=== PATIENT | female | born 1980 | race African-American/Black ===

== ENCOUNTER 2017-04-14 12:08 | Emergency (ER) | payer OTHER ==
[~2017-04-14] VITALS: Ht 160 cm; Wt 124.7 kg
[~2017-04-14 12:08] MED LIST: ACETAMINOPHEN-1 EAC1 PO; AUGMENTIN 875875 MG PO; BACTRIM DS TAB1 EACH PO; BIRTH CONTROL; CLEOCIN HCL150 MG PO; DIFLUCAN150 M1 PO; DIFLUCAN150 MG PO; FLEXERIL PO; GLUCOPHAGE500 MG PO; IBUPROFEN 200200 M1 PO; IBUPROFEN 800800 M1 PO; MAXZIDE-25 MG1 EACH PO; MOBIC7.5 MG PO; NORCO 5-325 TA1 EACH PO; PEPCID20 MG PO; PREDNISONE 20 M20 MG PO; ULTRAM 50MG TAB50 MG PO; ZOFRAN ODT4 MG PO
[2017-04-14] MEDS ORDERED: NOVOLOG100 UNIT/1 SUBQ (12:20)
[2017-04-14 13:57] LABS: URINE BILIRUBIN NEGATIVE (Negative); URINE BLOOD TRACE (Negative); URINE CLARITY CLEAR; URINE COLOR YELLOW; URINE GLUCOSE-RANDOM 3+ (Negative); URINE KETONES NEGATIVE (Negative); URINE LEUKOCYTES 1+ (Negative); URINE NITRITE NEGATIVE (Negative); URINE PROTEIN NEGATIVE (Negative); URINE UROBILINOGEN 0.2 E.U./dl (0.2-1.0)
[2017-04-14 14:06] LABS: SQUAMOUS >10 Many /LPF (0-3)
[2017-04-14 14:07] LABS: BACTERIA >30 Many /HPF (None Seen)
[2017-04-14 14:08] LABS: CASTS None Seen /LPF (None Seen); CRYSTALS None Seen /LPF (None Seen); URINE RBC 3-10 Few /HPF (0-2)
[2017-04-14] MEDS ORDERED: CIPRO500 MG PO (14:14)
[2017-04-14] MEDS ORDERED: DIFLUCAN150 MG PO (14:14)
[2017-04-14 14:22] VITALS: BP 177/126
== END 2017-04-14 14:23 | disposition home or self-care (01) ==
LOC: M.ERS 12:08
PROVIDERS: Physician Assistant
DX: N30.00 Acute cystitis without hematuria (principal); E11.9 Type 2 diabetes mellitus without complications; I10 Essential (primary) hypertension; Z90.49 Acquired absence of other specified parts of digestive tract; Z98.890 Other specified postprocedural states; Z79.4 Long term (current) use of insulin

== ENCOUNTER 2017-05-08 08:23 | Emergency (ER) | payer OTHER ==
[~2017-05-08] VITALS: Ht 160 cm; Wt 124.7 kg
[~2017-05-08 08:23] MED LIST changes: +CIPRO500 MG PO; +NOVOLOG100 UNIT/1 SUBQ
[2017-05-08 08:36] LABS: URINE BILIRUBIN NEGATIVE (Negative); URINE BLOOD NEGATIVE (Negative); URINE CLARITY SL CLOUDY; URINE COLOR YELLOW; URINE GLUCOSE-RANDOM 2+ (Negative); URINE KETONES NEGATIVE (Negative); URINE LEUKOCYTES NEGATIVE (Negative); URINE NITRITE NEGATIVE (Negative); URINE PROTEIN TRACE (Negative); URINE SPECIFIC GRAVITY >= 1.030 (1.005-1.030); URINE UROBILINOGEN 0.2 E.U./dl (0.2-1.0)
[2017-05-08 08:46] LABS: BACTERIA >30 Many /HPF (None Seen); CRYSTALS None Seen /LPF (None Seen); MUCUS 4-6 Moderate strn/LPF (None Seen); SQUAMOUS >10 Many /LPF (0-3); URINE RBC None Seen /HPF (0-2); URINE WBC 6-15 Few /HPF (0-5)
[2017-05-08 08:54] LABS: CASTS None Seen /LPF (None Seen)
[2017-05-08] MEDS ORDERED: MACROBID 100 M100 M1 PO (09:24)
[2017-05-08 09:37] VITALS: BP 158/103
== END 2017-05-08 09:38 | disposition home or self-care (01) ==
LOC: M.ERS 08:23
PROVIDERS: Emergency Medicine Emergency Medical Services
DX: N39.0 Urinary tract infection, site not specified (principal); N76.0 Acute vaginitis; E11.9 Type 2 diabetes mellitus without complications; E66.01 Morbid (severe) obesity due to excess calories; I10 Essential (primary) hypertension; E28.2 Polycystic ovarian syndrome; Z90.49 Acquired absence of other specified parts of digestive tract; Z79.4 Long term (current) use of insulin; Z68.42 Body mass index [BMI] 45.0-49.9, adult

== ENCOUNTER 2018-03-27 17:59 | Emergency (ER) | payer OTHER ==
[~2018-03-27] VITALS: Ht 160 cm; Wt 127.0 kg
[~2018-03-27 17:59] MED LIST changes: +MACROBID 100 M100 M1 PO
[2018-03-27] MEDS ORDERED: LANTUS100 UNIT/M SUBQ (18:14)
[2018-03-27] MEDS ORDERED: GLUCOPHAGE XR500 MG PO (18:14)
[2018-03-27] MEDS ORDERED: LISINOPRIL-HCT1 EAC1 PO (18:15)
[2018-03-27 18:26] LABS: URINE BILIRUBIN NEGATIVE (Negative); URINE BLOOD NEGATIVE (Negative); URINE CLARITY CLEAR; URINE COLOR YELLOW; URINE GLUCOSE-RANDOM 3+ (Negative); URINE KETONES NEGATIVE (Negative); URINE LEUKOCYTES-REFLEX TRACE (Negative); URINE NITRITE-REFLEX NEGATIVE (Negative); URINE PROTEIN NEGATIVE (Negative); URINE SPECIFIC GRAVITY 1.015 (1.005-1.030); URINE UROBILINOGEN 0.2 E.U./dl (0.2-1.0)
[2018-03-27 18:35] LABS: MUCUS None Seen strn/LPF (None Seen); SQUAMOUS >10 Many /LPF (0-3)
[2018-03-27 18:36] LABS: BACTERIA-REFLEX 1-9 Few /HPF (None Seen); CASTS None Seen /LPF (None Seen); URINE WBC-REFLEX 6-15 Few /HPF (0-5)
[2018-03-27 18:37] LABS: CRYSTALS None Seen /LPF (None Seen); URINE RBC None Seen /HPF (0-2)
[2018-03-27] MEDS ORDERED: DIFLUCAN150 M1 PO (19:17)
[2018-03-27] MEDS ORDERED: DOXYCYCLINE 10100 MG PO (19:17)
[2018-03-27 19:54] VITALS: BP 145/79
== END 2018-03-27 19:56 | disposition home or self-care (01) ==
LOC: M.ERS 17:59
PROVIDERS: Nurse Practitioner Family
DX: Z20.2 Contact with and (suspected) exposure to infections with a predominantly sexual mode of transmission (principal); N39.0 Urinary tract infection, site not specified; E11.9 Type 2 diabetes mellitus without complications; I10 Essential (primary) hypertension; E66.01 Morbid (severe) obesity due to excess calories; Z68.42 Body mass index [BMI] 45.0-49.9, adult; Z90.49 Acquired absence of other specified parts of digestive tract

== ENCOUNTER 2018-10-21 20:56 | Emergency (ER) | payer OTHER ==
[~2018-10-21] VITALS: Ht 160 cm; Wt 1.8 kg
[~2018-10-21 20:56] MED LIST changes: +DOXYCYCLINE 10100 MG PO; +GLUCOPHAGE XR500 MG PO; +LANTUS100 UNIT/M SUBQ; +LISINOPRIL-HCT1 EAC1 PO
[2018-10-21] MEDS ORDERED: NEURONTIN 300M300 M2 PO (21:11)
[2018-10-21 21:32] LABS: ABSOLUTE BASOPHILS 0.1 thou/uL (0.0-0.2); ABSOLUTE EOSINOPHILS 0.4 thou/uL (0.0-0.7); ABSOLUTE LYMPHOCYTES 4.2 thou/uL (0.8-5.3); ABSOLUTE MONOCYTES 0.5 thou/uL (0.0-1.2); ABSOLUTE NEUTROPHILS 3.9 thou/uL (1.6-8.1); BASOPHILS 0.6 %; EOSINOPHILS 4.4 %; HEMOGLOBIN 12.7 gm/dL (12.0-15.0); MCH 29.1 pg (26.0-34.0); MCHC 33.4 g/dL (28.0-37.0); MCV 87.2 fL (80.0-100.0); MPV 9.6 fl. (7.2-11.1); NUCLEATED RBCS 0 /100WBC; PLATELET COUNT* 178 thou/uL (150-400); RBC 4.35 mil/uL (4.20-5.00); RDW-CV 13.9 % (10.5-14.5); WBC 9.1 thou/uL (4.0-11.0)
[2018-10-21 21:46] LABS: PROTIME 10.6 Seconds (9.20-11.50)
[2018-10-21 21:49] LABS: CREATININE 0.7 mg/dL (0.6-1.3); POTASSIUM 3.6 mmol/L (3.5-5.1)
[2018-10-21 21:54] LABS: ALBUMIN 3.5 g/dL (3.4-5.0); LIPASE 146 U/L (73-393); NT-PRO BRAIN NAT PEPTIDE 21 pg/mL (<300); TOTAL BILIRUBIN 0.4 mg/dL (<0.1-1.0); TOTAL PROTEIN 7.1 g/dL (6.4-8.2); TROPONIN-I LEVEL <0.06 ng/mL (<0.06)
[2018-10-22] MEDS ORDERED: PROMETH-CODEIN 65 ML PO (01:32)
[2018-10-22] MEDS ORDERED: PROAIR HFA8.5 GM INH (01:32)
[2018-10-22] MEDS ORDERED: PREDNISONE50 MG PO (01:32)
[2018-10-22 01:45] VITALS: BP 109/69
== END 2018-10-22 01:49 | disposition home or self-care (01) ==
LOC: M.ERS 20:56
PROVIDERS: Emergency Medicine
DX: R05 Cough (principal); R07.89 Other chest pain; E28.2 Polycystic ovarian syndrome; E11.9 Type 2 diabetes mellitus without complications; I10 Essential (primary) hypertension; E66.01 Morbid (severe) obesity due to excess calories; Z88.1 Allergy status to other antibiotic agents; Z88.5 Allergy status to narcotic agent; Z90.49 Acquired absence of other specified parts of digestive tract; Z68.41 Body mass index [BMI] 40.0-44.9, adult; Z79.4 Long term (current) use of insulin

== ENCOUNTER 2019-02-08 21:37 | Emergency (ER) | payer OTHER ==
[~2019-02-08] VITALS: Ht 160 cm; Wt 122.5 kg
[~2019-02-08 21:37] MED LIST changes: +NEURONTIN 300M300 M2 PO; +PREDNISONE50 MG PO; +PROAIR HFA8.5 GM INH; +PROMETH-CODEIN 65 ML PO
[2019-02-08 22:15] LABS: ABSOLUTE EOSINOPHILS 0.5 thou/uL (0.0-0.7); ABSOLUTE LYMPHOCYTES 4.3 thou/uL (0.8-5.3); ABSOLUTE MONOCYTES 0.6 thou/uL (0.0-1.2); ABSOLUTE NEUTROPHILS 5.1 thou/uL (1.6-8.1); BASOPHILS 0.2 %; EOSINOPHILS 4.4 %; HEMATOCRIT 40.4 % (37.0-47.0); HEMOGLOBIN 13.7 gm/dL (12.0-15.0); LYMPHOCYTES 40.7 %; MCH 29.8 pg (26.0-34.0); MCV 87.8 fL (80.0-100.0); MONOCYTES 5.8 %; MPV 10.5 fl. (7.2-11.1); NUCLEATED RBCS 0 /100WBC; PLATELET COUNT* 180 thou/uL (150-400); POLYS 48.9 %; RDW-CV 13.6 % (10.5-14.5); WBC 10.5 thou/uL (4.0-11.0)
[2019-02-08 22:32] LABS: URINE BILIRUBIN NEGATIVE (Negative); URINE BLOOD 1+ (Negative); URINE CLARITY CLEAR; URINE COLOR YELLOW; URINE GLUCOSE-RANDOM TRACE (Negative); URINE KETONES NEGATIVE (Negative); URINE LEUKOCYTES-REFLEX TRACE (Negative); URINE NITRITE-REFLEX NEGATIVE (Negative); URINE PROTEIN 1+ (Negative); URINE SPECIFIC GRAVITY >= 1.030 (1.005-1.030); URINE UROBILINOGEN 0.2 E.U./dl (0.2-1.0)
[2019-02-08 22:37] LABS: CALCIUM 8.6 mg/dL (8.5-10.1); CREATININE 0.9 mg/dL (0.6-1.3); POTASSIUM 3.7 mmol/L (3.5-5.1)
[2019-02-08 22:41] LABS: ALBUMIN 3.4 g/dL (3.4-5.0); TOTAL BILIRUBIN 0.4 mg/dL (<0.1-1.0); TOTAL PROTEIN 7.8 g/dL (6.4-8.2)
[2019-02-08 22:45] LABS: BACTERIA-REFLEX >30 Many /HPF (None Seen); CASTS None Seen /LPF (None Seen); MUCUS 4-6 Moderate strn/LPF (None Seen); SQUAMOUS 0-3 Few /LPF (0-3); TRIPLE PHOSPHATE CRYSTALS 4-10 Moderate /LPF (None Seen); URINE WBC-REFLEX >25 Many /HPF (0-5); WBC CLUMPS Few (None Seen)
[2019-02-08] MEDS ORDERED: TRAMADOL 50 MG50 MG PO (23:06)
[2019-02-08] MEDS ORDERED: ZOFRAN ODT4 MG SUBLING (23:06)
[2019-02-08 23:12] VITALS: BP 172/102
--- NOTE | 2019-02-10 10:51 | EKG ---
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
== END 2019-02-08 23:13 | disposition home or self-care (01) ==
LOC: M.ERS 21:37
PROVIDERS: Family Medicine
DX: R10.84 Generalized abdominal pain (principal); R11.0 Nausea; E11.9 Type 2 diabetes mellitus without complications; E66.01 Morbid (severe) obesity due to excess calories; I10 Essential (primary) hypertension; Z88.1 Allergy status to other antibiotic agents; Z88.5 Allergy status to narcotic agent; Z79.4 Long term (current) use of insulin; Z90.89 Acquired absence of other organs; Z90.49 Acquired absence of other specified parts of digestive tract; Z68.42 Body mass index [BMI] 45.0-49.9, adult

== ENCOUNTER 2020-02-13 20:20 | Emergency (ER) | payer OTHER ==
[~2020-02-13] VITALS: Ht 160 cm; Wt 93.0 kg
[~2020-02-13 20:20] MED LIST changes: +TRAMADOL 50 MG50 MG PO; +ZOFRAN ODT4 MG SUBLING
[2020-02-13] MEDS ORDERED: NAPROXEN375 MG PO (21:02)
[2020-02-13] MEDS ORDERED: CLEOCIN HCL150 MG PO (21:02)
[2020-02-13] MEDS ORDERED: DIFLUCAN150 MG PO (21:21)
[2020-02-13 21:30] VITALS: BP 163/94
== END 2020-02-13 21:33 | disposition home or self-care (01) ==
LOC: M.ERS 20:20
DX: L03.012 Cellulitis of left finger (principal); E11.9 Type 2 diabetes mellitus without complications; I10 Essential (primary) hypertension; E66.01 Morbid (severe) obesity due to excess calories; Z88.1 Allergy status to other antibiotic agents; Z88.6 Allergy status to analgesic agent; Z90.49 Acquired absence of other specified parts of digestive tract

== ENCOUNTER 2020-05-04 14:50 | Emergency (ER) | payer OTHER ==
[~2020-05-04] VITALS: Ht 160 cm; Wt 88.5 kg
[~2020-05-04 14:50] MED LIST changes: +NAPROXEN375 MG PO
[2020-05-04] MEDS ORDERED: FLEXERIL PO (15:23)
[2020-05-04 15:30] VITALS: BP 150/93
== END 2020-05-04 15:31 | disposition home or self-care (01) ==
LOC: M.ERS 14:50
DX: S39.012A Strain of muscle, fascia and tendon of lower back, initial encounter (principal); I10 Essential (primary) hypertension; E11.9 Type 2 diabetes mellitus without complications; E66.01 Morbid (severe) obesity due to excess calories; Z68.34 Body mass index [BMI] 34.0-34.9, adult; Z88.1 Allergy status to other antibiotic agents; Z88.5 Allergy status to narcotic agent; Z90.49 Acquired absence of other specified parts of digestive tract; V49.49XA Driver injured in collision with other motor vehicles in traffic accident, initial encounter; Y93.89 Activity, other specified; Y92.89 Other specified places as the place of occurrence of the external cause; Y99.8 Other external cause status

== ENCOUNTER 2020-05-24 22:37 | Emergency (ER) | payer OTHER ==
[~2020-05-24] VITALS: Ht 160 cm; Wt 88.5 kg
[2020-05-25 00:05] LABS: HEMATOCRIT 41.3 % (37.0-47.0); HEMOGLOBIN 12.3 gm/dL (12.0-15.0); MCH 27.5 pg (26.0-34.0); MCHC 29.8 g/dL (28.0-37.0); MCV 92.3 fL (80.0-100.0); MPV 10.1 fl. (7.2-11.1); NUCLEATED RBCS 0 /100WBC; PLATELET COUNT* 215 thou/uL (150-400); RBC 4.48 mil/uL (4.20-5.00); RDW-CV 14.1 % (10.5-14.5); WBC 8.9 thou/uL (4.0-11.0)
[2020-05-25 00:17] LABS: CALCIUM 8.6 mg/dL (8.5-10.1); CREATININE 0.7 mg/dL (0.6-1.3); POTASSIUM 3.7 mmol/L (3.5-5.1)
[2020-05-25 00:21] LABS: ALBUMIN 3.8 g/dL (3.4-5.0); TOTAL BILIRUBIN 0.4 mg/dL (<0.1-1.0); TOTAL PROTEIN 7.7 g/dL (6.4-8.2)
[2020-05-25 00:43] LABS: ABSOLUTE EOSINOPHILS 0.2 thou/uL (0.0-0.7); ABSOLUTE LYMPHOCYTES 0.9 thou/uL (0.8-5.3); ABSOLUTE MONOCYTES 0.3 thou/uL (0.0-1.2); ABSOLUTE NEUTROPHILS 7.6 thou/uL (1.6-8.1)
[2020-05-25 00:44] LABS: LARGE PLATELETS OCCASIONAL; PLATELET ESTIMATE ADEQUATE
[2020-05-25] MEDS ORDERED: HYDROCODONE-ACE15 ML PO (02:18)
[2020-05-25] MEDS ORDERED: ZOFRAN ODT4 MG PO (02:18)
[2020-05-25] MEDS ORDERED: CARAFATE 11 GM/10 M1 PO (02:18)
[2020-05-25] MEDS ORDERED: PROTONIX40 MG PO (02:18)
[2020-05-25 02:57] LABS: URINE BILIRUBIN NEGATIVE (Negative); URINE BLOOD NEGATIVE (Negative); URINE CLARITY CLEAR; URINE COLOR STRAW; URINE GLUCOSE-RANDOM NEGATIVE (Negative); URINE KETONES NEGATIVE (Negative); URINE LEUKOCYTES-REFLEX NEGATIVE (Negative); URINE NITRITE-REFLEX NEGATIVE (Negative); URINE PROTEIN NEGATIVE (Negative); URINE SPECIFIC GRAVITY <= 1.005 (1.005-1.030); URINE UROBILINOGEN 0.2 E.U./dl (0.2-1.0)
[2020-05-25 03:05] LABS: AMP/METHAMP Negative (Negative); BARBITURATES Negative (Negative); BENZODIAZEPINES Negative (Negative); COCAINE Negative (Negative); METHADONE Negative (Negative); OPIATES Negative (Negative); PCP Negative (Negative); THC Negative (Negative)
[2020-05-25 04:05] VITALS: BP 168/95
== END 2020-05-25 04:05 | disposition short-term general hospital (02) ==
LOC: M.ERS 22:37
PROVIDERS: Emergency Medicine
DX: K20.90 Esophagitis, unspecified without bleeding (principal); Z20.822 Contact with and (suspected) exposure to COVID-19; E11.9 Type 2 diabetes mellitus without complications; I10 Essential (primary) hypertension; Z88.1 Allergy status to other antibiotic agents; Z88.5 Allergy status to narcotic agent; E66.01 Morbid (severe) obesity due to excess calories; Z68.34 Body mass index [BMI] 34.0-34.9, adult; Z90.49 Acquired absence of other specified parts of digestive tract; Z79.899 Other long term (current) drug therapy